=== PATIENT | female | born 1940 | race Caucasian/White ===

== ENCOUNTER 2018-07-24 11:14 | Inpatient (IN) | payer MEDICARE, OTHER ==
[~2018-07-24] VITALS: Ht 154.9 cm; Wt 60.6 kg
[2018-07-24 12:14] LABS: Basophils # (auto) 0 uL; Basophils % (auto) 0.5 % (0.0-2.0); Eosinophils # (auto) 0 uL; Eosinophils % (auto) 0.6 % (0.0-7.0); Hematocrit 44.9 % (36.0-46.0); Hemoglobin 15.3 g/dL (12.2-16.2); Lymphocytes % (auto) 35.8 % (10.0-50.0); Mean Corpuscular Hgb Conc. 34.1 g/dL (32.0-36.0); Mean Corpuscular Volume 93.7 fL (80.0-100.0); Monocytes # (auto) 0.6 uL; Monocytes % (auto) 10.2 % (0.0-12.0); Neutrophils # (auto) 2.9 uL; Neutrophils % (auto) 52.9 % (37.0-80.0); Nucleated Red Blood Cells % 0.1 %; Platelet Count (auto) 304 10^3/uL (140-450); Red Blood Cells 4.79 10^6/uL (4.0-5.20); Red Cell Distribution Width 13.3 % (11.8-14.3); White Blood Cell 5.5 10^3/uL (4.4-10.8)
[2018-07-24 12:35] LABS: Alanine Aminotransferase 65 U/L (13-56); Albumin 4.3 g/dL (3.4-5.0); Anion Gap 9 (5-15); Aspartate Aminotransferase 47 U/L (15-37); BUN/Creatinine Ratio 11.7; Blood Urea Nitrogen 7 mg/dL (7-18); Calcium 9.3 mg/dL (8.5-10.1); Carbon Dioxide 24 mmol/L (21-32); Chloride 90 mmol/L (98-107); GFR African American 124 mL/min; GFR Non-African American 102 mL/min; Glucose 125 mg/dL (74-106); Potassium 3.9 mmol/L (3.5-5.1); Sodium 123 mmol/L (136-145)
[2018-07-24 12:39] LABS: Alkaline Phosphatase 75 U/L (45-117); Bilirubin, Total 0.5 mg/dL (0.2-1.0); Total Protein 8.4 g/dL (6.4-8.2)
[2018-07-24 13:04] LABS: INR 0.97 (0.9-1.15); Partial Thromboplastin Time 27.8 sec (23.78-33.04); Prothrombin Time 10.4 sec (9.27-12.13)
[2018-07-24 13:10] LABS: Magnesium 2.4 mg/dL (1.6-2.6)
[2018-07-24 16:20] LABS: Urine Bacteria FEW /hpf (None Seen); Urine Blood Negative /uL (Negative); Urine Specific Gravity 1.005 (1.001-1.035); Urine WBC 10 /hpf (0 - 5)
[2018-07-24] MEDS ORDERED: SODIUM CHLORIDE 0.9% 1,000 ML IVB ONE (19:53)
[2018-07-24] MEDS ORDERED: PROMETHAZINE HCL 25 MG/ML 1ML IV PRN (20:00)
[2018-07-24] MEDS ORDERED: HYDROcodone-ACET 5/325MG TAB PO PRN (20:45)
[2018-07-24] MEDS ORDERED: ACETAMINOPHEN 325 MG TAB PO PRN (20:45)
[2018-07-24] MEDS ORDERED: ONDANSETRON HCL 4 MG/2 ML VIAL IV PRN (20:45)
[2018-07-24] MEDS ORDERED: TEMAZEPAM 15 MG CAP PO PRN (20:45)
[2018-07-24] MEDS ORDERED: MORPHINE SULFATE 4 MG/ML SYR/VIAL IV PRN (20:45)
[2018-07-24] MEDS ORDERED: cefTRIAXone 1GM/50ML D5W 50 ML IV ONE (21:30)
[2018-07-24] MEDS: FAMOTIDINE 20 MG TAB PO SCH (22:34)
--- NOTE | 2018-07-24 23:00 | NUR ---
Telemetry admit from [facility]AH[facility] CALDER[facility]N admitted to Medical Surgical unit. Patient oriented to SANDER THOMAS, primary RN, unit, room, bed, and unit policies regarding patient care and visiting hours. Patient weighed by bedscale and encouraged to call if they need something. All questions and concerns addressed, patient verbalized understanding.
[2018-07-25] MEDS: SODIUM CHLORIDE 0.9% 1,000 ML IV SCH ×3 (00:58→23:32)
[2018-07-25] MEDS: LORazepam 0.5 MG TAB PO PRN (01:04)
[2018-07-25] MEDS ORDERED: LORA-655 PO (01:16)
[2018-07-25] MEDS ORDERED: AMITRIP PO (01:16)
[2018-07-25] MEDS ORDERED: LEV50T PO (01:16)
[2018-07-25] MEDS ORDERED: LOSA25TA40 PO (01:16)
[2018-07-25] MEDS ORDERED: PROP60CA34 PO (01:16)
[2018-07-25 05:48] VITALS: BP 90/53
[2018-07-25 05:56] LABS: Basophils # (auto) 0.1 uL; Basophils % (auto) 1.1 % (0.0-2.0); Eosinophils # (auto) 0.1 uL; Eosinophils % (auto) 1.2 % (0.0-7.0); Hemoglobin 14.8 g/dL (12.2-16.2); Lymphocytes # (auto) 2.7 uL; Lymphocytes % (auto) 37.8 % (10.0-50.0); Mean Corpuscular Hemoglobin 32.9 pg (28.0-32.0); Mean Corpuscular Hgb Conc. 35.2 g/dL (32.0-36.0); Mean Corpuscular Volume 93.5 fL (80.0-100.0); Monocytes # (auto) 0.8 uL; Monocytes % (auto) 10.9 % (0.0-12.0); Neutrophils # (auto) 3.5 uL; Nucleated Red Blood Cells % 0.1 %; Platelet Count (auto) 276 10^3/uL (140-450); Red Blood Cells 4.49 10^6/uL (4.0-5.20); Red Cell Distribution Width 13.1 % (11.8-14.3)
[2018-07-25] MEDS: LEVOTHYROXINE SODIUM 50 MCG TAB PO SCH (06:05)
[2018-07-25 06:14] LABS: Albumin 3.8 g/dL (3.4-5.0); BUN/Creatinine Ratio 12.7; Calcium 8.5 mg/dL (8.5-10.1); Potassium 3.5 mmol/L (3.5-5.1)
[2018-07-25 06:17] LABS: Bilirubin, Total 0.7 mg/dL (0.2-1.0); Total Protein 7.4 g/dL (6.4-8.2)
--- NOTE | 2018-07-25 07:00 | NUR ---
Opening Shift Note Assumed care of patient, awake, alert, and oriented x4. No S/S of distress/SOB, but patient reports medial abdominal pain of 6/10. IV in right forearm 20 gauge asymptomatic, intact, patent, and infusing normal saline at 75 mL/hour. Bed locked and in lowest position and call light is within reach. Instructed on POC and to call for assist PRN, and patient verbalized understanding. Will continue to monitor for changes Q1hr and PRN.
[2018-07-25 10:03] VITALS: BP 131/66
[2018-07-25] MEDS: FAMOTIDINE 20 MG TAB PO SCH (10:34)
[2018-07-25] MEDS: AMITRIPTYLINE HCL 25 MG TAB PO SCH (10:35)
[2018-07-25] MEDS: PROPRANOLOL HCL 20 MG TAB PO SCH (10:37)
[2018-07-25 17:07] VITALS: BP 125/75
[2018-07-25] MEDS: cefTRIAXone 1GM/50ML D5W 50 ML IV SCH (21:50)
[2018-07-25 22:00] VITALS: BP 141/92
[2018-07-26] MEDS: LORazepam 0.5 MG TAB PO PRN ×3 (01:03→23:54)
[2018-07-26 05:49] VITALS: BP 103/61
[2018-07-26 05:58] VITALS: BP 138/78
[2018-07-26] MEDS: LEVOTHYROXINE SODIUM 50 MCG TAB PO SCH ×2 (06:25→07:05)
[2018-07-26 06:38] LABS: Potassium 3.4 mmol/L (3.5-5.1)
[2018-07-26 06:46] LABS: BUN/Creatinine Ratio 11.1; Calcium 8.5 mg/dL (8.5-10.1)
--- NOTE | 2018-07-26 07:06 | NUR ---
SHIFT END PATIENT RESTING IN BED. NO COMPLAINTS OF PAIN OR SIGNS OR SYMPTOMS OF DISTRESS NOTED. NO BM YET BUT TOLERATED FULL LIQUID DIET WELL LAST NIGHT. NO ABDOMINAL PAIN OR N/V AFTER DINNER. ENDORSING CARE TO DAY RN.
--- NOTE | 2018-07-26 07:30 | NUR ---
Opening Shift Note Assumed care of patient, awake, alert, and oriented x4. No S/S of distress/SOB or pain. IV in left forearm 20 gauge asymptomatic, intact, patent, and infusing normal saline at 75 mL/hour. Bed locked and in lowest position and call light is within reach. Instructed on POC and to call for assist PRN, and patient verbalized understanding to the best of her ability. Will continue to monitor for changes Q1hr and PRN.
[2018-07-26 08:38] VITALS: BP_SYST 114; BP_SYST 155; BP_DIAS 60; BP_DIAS 68
[2018-07-26] MEDS: AMITRIPTYLINE HCL 25 MG TAB PO SCH (09:55)
[2018-07-26] MEDS: FAMOTIDINE 20 MG TAB PO SCH (09:55)
[2018-07-26] MEDS: PROPRANOLOL HCL 20 MG TAB PO SCH (09:57)
--- NOTE | 2018-07-26 10:35 | NUR ---
SON CALLED AND SPOKE WITH [facility] DISCHARGE NURSE, AND REQUESTED PATIENT INFORMATION. WAS TOLD PASSWORD WAS NOT SET UP, AND HE ADDRESSED SEVERAL CONCERNS ABOUT THE PATIENT. WILL SET UP PASSWORD WITH PATIENT, AND AWAIT RETURN CALL FROM SON. WILL CONTINUE TO MONITOR Q1.
--- NOTE | 2018-07-26 10:37 | NUR ---
PLACED PHONE WITHIN PATIENT'S REACH. Patient could not reach phone at bedside to answer incoming calls. Went into room and assisted patient in answering hospital room phone; placed phone next to patient, and explained how to use the phone. Patient verbalized understanding, and demonstrated correct use of phone. Will continue to monitor patient.
--- NOTE | 2018-07-26 10:40 | NUR ---
SET UP PASSWORD WITH PATIENT, AND PATIENT STATES THAT PASSWORD WAS GIVEN TO SON. PATIENT STATED THAT SHE WOULD LIKE HER FLOOR CLEANED DAILY. PAGED EVS AND REQUESTED FOR FLOOR TO BE CLEANED DAILY AT BEDSIDE. AWAITING REPLY FROM EVS.
[2018-07-26] MEDS ORDERED: POTASSIUM CHL 20 Meq TABLET PO ONE (11:45)
[2018-07-26 12:43] VITALS: BP 194/113
[2018-07-26 17:16] VITALS: BP_SYST 121; BP_SYST 160; BP_DIAS 78; BP_DIAS 89
[2018-07-26] MEDS: cefTRIAXone 1GM/50ML D5W 50 ML IV SCH (21:52)
[2018-07-26 22:00] VITALS: BP 155/74
[2018-07-27 05:38] VITALS: BP 117/74
[2018-07-27] MEDS ORDERED: LEVOTHYROXINE SODIUM 50 MCG TAB PO SCH (06:00)
[2018-07-27 06:53] LABS: BUN/Creatinine Ratio 14.9; Calcium 8.8 mg/dL (8.5-10.1); Potassium 3.9 mmol/L (3.5-5.1)
--- NOTE | 2018-07-27 06:54 | NUR ---
SIGN OFF PATIENT RESTING IN BED COMFORTABLY. NO DISTRESS OR PAIN NOTED. BED IN LOWEST LOCKED POSITION WITH 2/4 SIDE RAILS UP AND CALL MIJARES W/IN REACH. ENDORSING CARE TO DAY RN.
--- NOTE | 2018-07-27 07:50 | NUR ---
Patient sitting in chair, talkative. Patient verbalized "I'm nervous." Patient has anxiety. Patient made aware relaxation techniques can help. Not due for Ativan at this time.
[2018-07-27 09:29] VITALS: BP 151/95
[2018-07-27] MEDS: PROPRANOLOL HCL 20 MG TAB PO SCH (09:29)
[2018-07-27] MEDS: AMITRIPTYLINE HCL 25 MG TAB PO SCH (09:30)
[2018-07-27] MEDS: FAMOTIDINE 20 MG TAB PO SCH (09:30)
[2018-07-27] MEDS: LORazepam 0.5 MG TAB PO PRN (12:35)
--- NOTE | 2018-07-27 12:35 | NUR ---
Patient is anxious, talkative. Ativan PO given for anxiety as ordered.
[2018-07-27 12:44] VITALS: BP 155/89
--- NOTE | 2018-07-27 16:00 | NUR ---
Patient requested if she can eat dinner first before going home, but if her daughter comes earlier than 6:00 pm to pick her up, it's okay for her not to have dinner at the hospital.
[2018-07-27 16:09] VITALS: BP 151/95
--- NOTE | 2018-07-27 16:50 | NUR ---
IV line removed, IV catheter intact, pressure dressing applied. Patient is ambulatory, steady gait noted, oriented x4, no acute distress noted. Patient waiting for her daughter to come over to pick her up. Returned patient's own medications (POM). Instructed the patient of her follow up appointment with Enma Arvizu. Prescription and discharge papers given to patient.
--- NOTE | 2018-07-27 17:30 | NUR ---
Patient not in the room. Patient on Bed A said patient on Bed B already left.
== END 2018-07-27 17:30 | disposition home or self-care (01) | DRG 690 ==
LOC: ER 11:22 → WEST WING 20:37
PROVIDERS: ADMIT Nurse Practitioner; ATTEND Internal Medicine
DX: N39.0 Urinary tract infection, site not specified (principal); E87.1 Hypo-osmolality and hyponatremia; K21.9 Gastro-esophageal reflux disease without esophagitis; I10 Essential (primary) hypertension; F41.9 Anxiety disorder, unspecified; E03.9 Hypothyroidism, unspecified; K76.0 Fatty (change of) liver, not elsewhere classified; E78.5 Hyperlipidemia, unspecified; R63.1 Polydipsia; Z79.890 Hormone replacement therapy; Z79.899 Other long term (current) drug therapy; Z90.710 Acquired absence of both cervix and uterus; Z88.2 Allergy status to sulfonamides; Z82.49 Family history of ischemic heart disease and other diseases of the circulatory system
CPT/HCPCS: 36415; 71045; 74176; 80048; 80053; 81001; 82150; 83690; 83735; 84295; 84443; 84484; 85025; 85610; 85730; 87086; 93005; 94761; 96361; 96365; A6257; G0378; J0696

== ENCOUNTER → 2018-08-04 | Outpatient (CLI) | payer MEDICARE, OTHER ==
[~2018-08-04] MED LIST: AMITRIP PO; LEV50T PO; LORA-655 PO; LOSA25TA40 PO; PROP60CA34 PO
[2018-08-04 13:40] LABS: BUN/Creatinine Ratio 14.1; Potassium 4.1 mmol/L (3.5-5.1)
[2018-08-04 14:12] LABS: Urine Amorphous Crystal FEW /hpf (None Seen); Urine Bacteria NONE SEEN /hpf (None Seen); Urine Blood Negative /uL (Negative); Urine Specific Gravity 1.006 (1.001-1.035); Urine WBC <1 /hpf (0 - 5)
== END | disposition home or self-care (01) ==
LOC: LAB 12:49
PROVIDERS: ATTEND Internal Medicine
DX: E03.9 Hypothyroidism, unspecified (principal); I10 Essential (primary) hypertension
CPT/HCPCS: 36415; 80048; 81001

== ENCOUNTER → 2018-10-06 | Outpatient (CLI) | payer MEDICARE, OTHER | END | disposition home or self-care (01) | LOC: LAB 14:24 | PROVIDERS: ATTEND Internal Medicine | DX: E03.9 Hypothyroidism, unspecified (principal) | CPT/HCPCS: 36415; 84443 ==

== ENCOUNTER → 2018-12-02 | Outpatient (CLI) | payer MEDICARE, OTHER ==
[~2018-12-02] MED LIST changes: +LOSA25TA38 PO; -LOSA25TA40 PO
[2018-12-02 13:58] LABS: Albumin 3.9 g/dL (3.4-5.0); BUN/Creatinine Ratio 10.1; Calcium 8.8 mg/dL (8.5-10.1); Potassium 4.1 mmol/L (3.5-5.1)
[2018-12-02 14:00] LABS: Bilirubin, Total 0.3 mg/dL (0.2-1.0)
== END | disposition home or self-care (01) ==
LOC: LAB 13:24
PROVIDERS: ATTEND Internal Medicine
DX: E03.9 Hypothyroidism, unspecified (principal); I10 Essential (primary) hypertension
CPT/HCPCS: 36415; 80053

== ENCOUNTER → 2019-01-05 | Outpatient (CLI) | payer MEDICARE, OTHER ==
[~2019-01-05] MED LIST changes: +LISI40TA PO; +POM PO
[2019-01-05 13:28] LABS: BUN/Creatinine Ratio 23.3; Calcium 8.7 mg/dL (8.5-10.1); Potassium 4.3 mmol/L (3.5-5.1)
== END | disposition home or self-care (01) ==
LOC: LAB 12:25
PROVIDERS: ATTEND Internal Medicine
DX: I10 Essential (primary) hypertension (principal)
CPT/HCPCS: 36415; 80048

== ENCOUNTER → 2019-06-06 | Outpatient (CLI) | payer MEDICARE, OTHER ==
[2019-06-06 14:45] LABS: Potassium 3.9 mmol/L (3.5-5.1)
[2019-06-06 14:53] LABS: Albumin 3.9 g/dL (3.4-5.0); BUN/Creatinine Ratio 21.5; Bilirubin, Total 0.5 mg/dL (0.2-1.0); Calcium 9.1 mg/dL (8.5-10.1); Total Protein 7.9 g/dL (6.4-8.2)
== END | disposition home or self-care (01) ==
LOC: LAB 14:00
PROVIDERS: ATTEND Internal Medicine
DX: E03.9 Hypothyroidism, unspecified (principal); I10 Essential (primary) hypertension; E87.1 Hypo-osmolality and hyponatremia; E87.6 Hypokalemia; G93.40 Encephalopathy, unspecified; F41.9 Anxiety disorder, unspecified; Z79.899 Other long term (current) drug therapy
CPT/HCPCS: 36415; 80053; 82306; 83036; 84443

== ENCOUNTER → 2020-06-28 | Outpatient (CLI) | payer MEDICARE, OTHER ==
[~2020-06-28] MED LIST changes: +AMIT25TA11 PO; -AMITRIP PO; -LISI40TA PO; +LISI40TA11 PO
[2020-06-28 10:56] LABS: Cholesterol 250 mg/dL (< 200); HDL Cholesterol 55 mg/dL (40-59); LDL Cholesterol 165 mg/dL (< 100); Triglycerides 204 mg/dL (< 150)
[2020-06-28 11:35] LABS: Urine Amorphous Crystal FEW /hpf (None Seen); Urine Bacteria MOD /hpf (None Seen); Urine Blood Negative /uL (Negative); Urine Mucus FEW (None Seen); Urine Specific Gravity 1.012 (1.001-1.035); Urine WBC 32 /hpf (0 - 5)
== END | disposition home or self-care (01) ==
LOC: LAB 09:05
PROVIDERS: ATTEND Internal Medicine
DX: E78.5 Hyperlipidemia, unspecified (principal); R73.03 Prediabetes
CPT/HCPCS: 36415; 80061; 81001; 83036

== ENCOUNTER → 2020-09-19 | Outpatient (CLI) | payer MEDICARE, OTHER ==
[2020-09-19 09:23] LABS: Albumin 4.3 g/dL (3.4-5.0); Bilirubin, Direct 0.2 mg/dL (0-0.2)
[2020-09-19 09:27] LABS: Bilirubin, Total 0.6 mg/dL (0.2-1.0); Total Protein 8.5 g/dL (6.4-8.2)
== END | disposition home or self-care (01) ==
LOC: LAB 08:22
PROVIDERS: ATTEND Internal Medicine
DX: E78.5 Hyperlipidemia, unspecified (principal)
CPT/HCPCS: 36415; 80061; 80076

== ENCOUNTER 2020-11-08 09:25 | Emergency (ER) | payer MEDICARE, OTHER ==
[~2020-11-08] VITALS: Ht 154.9 cm; Wt 54.4 kg
[2020-11-08 10:20] LABS: Urine WBC None Seen /hpf (0 - 5)
[2020-11-08 10:24] VITALS: BP 165/80
[2020-11-08 10:29] LABS: Urine Amorphous Crystal MANY /hpf (None Seen); Urine Bacteria NONE SEEN /hpf (None Seen); Urine Blood Negative /uL (Negative); Urine Specific Gravity 1.006 (1.001-1.035)
[2020-11-08] MEDS ORDERED: LACTULOSE 20Gm/30ML SOLN PO ONE (10:45)
[2020-12-20] MEDS ORDERED: SIMV10TA2 PO (16:00)
[2020-12-20] MEDS ORDERED: CLON0.1T PO (16:00)
== END 2020-11-08 11:02 | disposition home or self-care (01) ==
LOC: ER 09:25
DX: K59.00 Constipation, unspecified (principal); N20.0 Calculus of kidney; I10 Essential (primary) hypertension; E78.5 Hyperlipidemia, unspecified; Z90.710 Acquired absence of both cervix and uterus; Z79.899 Other long term (current) drug therapy; Z88.0 Allergy status to penicillin; Z88.2 Allergy status to sulfonamides; Z88.5 Allergy status to narcotic agent
CPT/HCPCS: 74176; 81001

== ENCOUNTER → 2020-11-21 | Outpatient (CLI) | payer MEDICARE, OTHER | END | disposition home or self-care (01) | LOC: LAB 08:33 | PROVIDERS: ATTEND Internal Medicine | DX: I10 Essential (primary) hypertension (principal); E78.5 Hyperlipidemia, unspecified; K59.00 Constipation, unspecified | CPT/HCPCS: 36415; 85652; 86141 ==

== ENCOUNTER 2020-12-06 19:25 | Inpatient (IN) | payer MEDICARE, OTHER ==
[~2020-12-06] VITALS: Ht 157.5 cm; Wt 55.2 kg
[2020-12-06 20:28] LABS: Basophils # (auto) 0.1 10 ^3/uL (0-0.2); Basophils % (auto) 0.5 % (0.0-2.0); Eosinophils # (auto) 0 10 ^3/uL (0-0.8); Eosinophils % (auto) 0.1 % (0.0-7.0); Hematocrit 40.5 % (36.0-46.0); Hemoglobin 14.5 g/dL (12.2-16.2); Lymphocytes # (auto) 2.2 10 ^3/uL (0.4-5.4); Lymphocytes % (auto) 16.5 % (10.0-50.0); Mean Corpuscular Hemoglobin 31.6 pg (28.0-32.0); Mean Corpuscular Hgb Conc. 35.7 g/dL (32.0-36.0); Mean Corpuscular Volume 88.4 fL (80.0-100.0); Monocytes % (auto) 7.6 % (0.0-12.0); Neutrophils % (auto) 75.3 % (37.0-80.0); Red Blood Cells 4.58 10^6/uL (4.0-5.20); Red Cell Distribution Width 13.2 % (11.8-14.3); White Blood Cell 13.3 10^3/uL (4.4-10.8)
[2020-12-06 21:18] LABS: Urine Amorphous Crystal FEW /hpf (None Seen); Urine Bacteria FEW /hpf (None Seen); Urine Blood Negative /uL (Negative); Urine Specific Gravity 1.004 (1.001-1.035); Urine WBC 1 /hpf (0 - 5)
[2020-12-06 21:37] LABS: Albumin 4.3 g/dL (3.4-5.0); Calcium 8.9 mg/dL (8.5-10.1); Potassium 3.1 mmol/L (3.5-5.1)
[2020-12-06 21:41] LABS: Bilirubin, Total 0.7 mg/dL (0.2-1.0); Total Protein 8.2 g/dL (6.4-8.2)
[2020-12-06] MEDS ORDERED: MORPHINE SULFATE 4 MG/ML SYR/VIAL IV PRN (22:00)
[2020-12-06] MEDS ORDERED: diphenhdrAMINE HCL 50 MG/1 ML VL IV PRN (22:00)
[2020-12-06] MEDS ORDERED: NITROGLYCERIN 0.4 MG SL TAB SL PRN (22:00)
[2020-12-06] MEDS ORDERED: ACETAMINOPHEN 325 MG TAB PO PRN (22:00)
[2020-12-06] MEDS ORDERED: hydrALAZINE HCL 20 MG/ML VL IV PRN (22:00)
[2020-12-06] MEDS ORDERED: MORPHINE SULF INJ 2 MG/ML SYRINGE 1ML IV PRN (22:00)
[2020-12-06] MEDS ORDERED: ONDANSETRON HCL 4 MG/2 ML VIAL IV PRN (22:00)
[2020-12-06] MEDS: SODIUM CHLORIDE 0.9% 1,000 ML IV SCH (22:15)
[2020-12-06] MEDS: metroNIDAZOLE 500MG/100ML 100 ML IV SCH (23:29)
[2020-12-06] MEDS: FAMOTIDINE (10MG/ML) 2ML VL IV SCH (23:29)
[2020-12-07] VITALS (8 sets, daily range): BP systolic 117–135; BP diastolic 74–92
[2020-12-07] MEDS: POTASSIUM CHL 20MEQ/100ML 100 ML IV SCH ×2 (01:22→03:30)
[2020-12-07] MEDS ORDERED: AMLO-489 PO (02:01)
[2020-12-07] MEDS ORDERED: LEVO50TA7 PO (02:01)
[2020-12-07] MEDS: metroNIDAZOLE 500MG/100ML 100 ML IV SCH ×3 (05:47→21:40)
[2020-12-07] MEDS: LORazepam 0.5 MG TAB PO PRN ×3 (05:48→20:47)
[2020-12-07 06:00] LABS: Basophils # (auto) 0 10 ^3/uL (0-0.2); Basophils % (auto) 0.6 % (0.0-2.0); Eosinophils # (auto) 0 10 ^3/uL (0-0.8); Eosinophils % (auto) 0.3 % (0.0-7.0); Hematocrit 38.5 % (36.0-46.0); Hemoglobin 13.7 g/dL (12.2-16.2); Lymphocytes # (auto) 1.6 10 ^3/uL (0.4-5.4); Lymphocytes % (auto) 23.9 % (10.0-50.0); Mean Corpuscular Hemoglobin 31.8 pg (28.0-32.0); Mean Corpuscular Hgb Conc. 35.6 g/dL (32.0-36.0); Mean Corpuscular Volume 89.2 fL (80.0-100.0); Monocytes # (auto) 0.7 10 ^3/uL (0-1.3); Monocytes % (auto) 9.9 % (0.0-12.0); Neutrophils # (auto) 4.4 10 ^3/uL (1.6-8.6); Neutrophils % (auto) 65.3 % (37.0-80.0); Red Blood Cells 4.32 10^6/uL (4.0-5.20); Red Cell Distribution Width 13.4 % (11.8-14.3); White Blood Cell 6.8 10^3/uL (4.4-10.8)
[2020-12-07 06:15] LABS: Albumin 3.5 g/dL (3.4-5.0); Calcium 8.6 mg/dL (8.5-10.1); Potassium 4.3 mmol/L (3.5-5.1)
[2020-12-07 06:21] LABS: BUN/Creatinine Ratio 14.3; Bilirubin, Total 0.7 mg/dL (0.2-1.0); Total Protein 7.1 g/dL (6.4-8.2)
[2020-12-07] MEDS: FAMOTIDINE (10MG/ML) 2ML VL IV SCH (10:00)
[2020-12-07 12:34] LABS: INR 1.02 (0.9-1.15)
[2020-12-07] MEDS ORDERED: FLEET ENEMA(ADULT) 135 ML PR ONE ×2 (14:30→16:30)
[2020-12-07] MEDS: SODIUM CHLORIDE 0.9% 1,000 ML IV SCH ×2 (14:55→20:47)
[2020-12-07] MEDS ORDERED: MILK OF MAGNESIA 30ML SUSP PO ONE (16:00)
[2020-12-07] MEDS: DOCUSATE SOD 100 MG CAP PO SCH ×2 (21:40→21:50)
[2020-12-08 05:00] VITALS: BP 153/93
[2020-12-08] MEDS: metroNIDAZOLE 500MG/100ML 100 ML IV SCH ×3 (06:15→21:09)
[2020-12-08 06:28] LABS: Basophils # (auto) 0 10 ^3/uL (0-0.2); Basophils % (auto) 0.8 % (0.0-2.0); Eosinophils # (auto) 0.1 10 ^3/uL (0-0.8); Hematocrit 41.6 % (36.0-46.0); Hemoglobin 14.9 g/dL (12.2-16.2); Lymphocytes # (auto) 2.4 10 ^3/uL (0.4-5.4); Lymphocytes % (auto) 40.6 % (10.0-50.0); Mean Corpuscular Hemoglobin 32.5 pg (28.0-32.0); Mean Corpuscular Hgb Conc. 35.8 g/dL (32.0-36.0); Mean Corpuscular Volume 90.9 fL (80.0-100.0); Monocytes # (auto) 0.7 10 ^3/uL (0-1.3); Monocytes % (auto) 12.5 % (0.0-12.0); Neutrophils # (auto) 2.7 10 ^3/uL (1.6-8.6); Neutrophils % (auto) 45.1 % (37.0-80.0); Nucleated Red Blood Cells % 0.1 %; Red Blood Cells 4.57 10^6/uL (4.0-5.20); Red Cell Distribution Width 13.5 % (11.8-14.3)
[2020-12-08 06:47] LABS: Calcium 8.9 mg/dL (8.5-10.1); Potassium 3.2 mmol/L (3.5-5.1)
[2020-12-08] MEDS: LORazepam 0.5 MG TAB PO PRN ×2 (06:53→18:54)
[2020-12-08 08:45] VITALS: BP 140/82
[2020-12-08] MEDS: DOCUSATE SOD 100 MG CAP PO SCH ×2 (10:00→21:09)
[2020-12-08] MEDS: FAMOTIDINE (10MG/ML) 2ML VL IV SCH (10:00)
[2020-12-08] MEDS ORDERED: POTASSIUM EFFERVESENT TAB 25 MEQ PO ONE (10:45)
[2020-12-08 13:08] VITALS: BP 154/95
[2020-12-08 17:12] VITALS: BP 152/95
[2020-12-08 22:00] VITALS: BP 151/84
[2020-12-09] MEDS: SODIUM CHLORIDE 0.9% 1,000 ML IV SCH ×3 (00:29→18:32)
[2020-12-09 05:00] VITALS: BP 141/80
[2020-12-09 05:43] LABS: Basophils # (auto) 0 10 ^3/uL (0-0.2); Basophils % (auto) 0.9 % (0.0-2.0); Eosinophils # (auto) 0.1 10 ^3/uL (0-0.8); Eosinophils % (auto) 1.4 % (0.0-7.0); Hematocrit 40.9 % (36.0-46.0); Hemoglobin 14.6 g/dL (12.2-16.2); Lymphocytes # (auto) 1.4 10 ^3/uL (0.4-5.4); Lymphocytes % (auto) 31.7 % (10.0-50.0); Mean Corpuscular Hemoglobin 32.5 pg (28.0-32.0); Mean Corpuscular Hgb Conc. 35.8 g/dL (32.0-36.0); Mean Corpuscular Volume 90.6 fL (80.0-100.0); Monocytes # (auto) 0.5 10 ^3/uL (0-1.3); Monocytes % (auto) 12.3 % (0.0-12.0); Neutrophils # (auto) 2.4 10 ^3/uL (1.6-8.6); Neutrophils % (auto) 53.7 % (37.0-80.0); Red Blood Cells 4.51 10^6/uL (4.0-5.20); Red Cell Distribution Width 13.5 % (11.8-14.3); White Blood Cell 4.5 10^3/uL (4.4-10.8)
[2020-12-09] MEDS: metroNIDAZOLE 500MG/100ML 100 ML IV SCH (05:57)
[2020-12-09 06:05] LABS: Albumin 3.7 g/dL (3.4-5.0); Calcium 8.5 mg/dL (8.5-10.1)
[2020-12-09 06:10] LABS: BUN/Creatinine Ratio 10.9; Bilirubin, Total 0.6 mg/dL (0.2-1.0); Total Protein 7.8 g/dL (6.4-8.2)
[2020-12-09] MEDS: LEVOTHYROXINE SODIUM 25 MCG TAB PO SCH (07:03)
[2020-12-09 08:15] LABS: Potassium 2.9 mmol/L (3.5-5.1)
[2020-12-09 09:00] VITALS: BP 187/111
[2020-12-09] MEDS: amLODIPine BESYLATE 5 MG TAB PO SCH (09:07)
[2020-12-09] MEDS: DOCUSATE SOD 100 MG CAP PO SCH ×2 (09:08→21:09)
[2020-12-09] MEDS: LORazepam 0.5 MG TAB PO PRN ×3 (11:17→23:59)
[2020-12-09] MEDS ORDERED: POTASSIUM CHLORIDE 60 MEQ, LIDOCAINE 1% (LOCAL ANESTH.) 6 ML in SODIUM CHL 0.9% 500 ML IV ONE (11:30)
[2020-12-09] MEDS ORDERED: POTASSIUM CHL 20 Meq TABLET PO ONE (11:30)
[2020-12-09 13:00] VITALS: BP 156/97
[2020-12-09 17:00] VITALS: BP 137/82
[2020-12-09 21:35] VITALS: BP 133/74
[2020-12-10] MEDS: SODIUM CHLORIDE 0.9% 1,000 ML IV SCH (03:22)
[2020-12-10 04:56] VITALS: BP 125/73
[2020-12-10] MEDS: LORazepam 0.5 MG TAB PO PRN (06:17)
[2020-12-10 06:59] LABS: BUN/Creatinine Ratio 17.8; Calcium 8.4 mg/dL (8.5-10.1); Magnesium 2.4 mg/dL (1.6-2.6); Potassium 3.9 mmol/L (3.5-5.1)
[2020-12-10] MEDS: LEVOTHYROXINE SODIUM 25 MCG TAB PO SCH ×2 (06:59→07:00)
[2020-12-10 09:00] VITALS: BP 158/92
[2020-12-10] MEDS: amLODIPine BESYLATE 5 MG TAB PO SCH (09:23)
[2020-12-10] MEDS: DOCUSATE SOD 100 MG CAP PO SCH (09:23)
[2020-12-10 12:07] VITALS: BP 158/92
== END 2020-12-10 13:30 | disposition home or self-care (01) | DRG 389 ==
LOC: EDBD 19:25 → ER 19:25 → TELE 21:58 → TELE-WESTW 23:54
PROVIDERS: ADMIT Nurse Practitioner Family; ATTEND Internal Medicine
DX: K56.41 Fecal impaction (principal); E87.1 Hypo-osmolality and hyponatremia; E87.6 Hypokalemia; Z20.822 Contact with and (suspected) exposure to COVID-19; I10 Essential (primary) hypertension; E78.5 Hyperlipidemia, unspecified; E03.9 Hypothyroidism, unspecified; K64.9 Unspecified hemorrhoids; F41.9 Anxiety disorder, unspecified; N20.0 Calculus of kidney; Z82.49 Family history of ischemic heart disease and other diseases of the circulatory system; Z90.710 Acquired absence of both cervix and uterus; Z79.899 Other long term (current) drug therapy; Z88.0 Allergy status to penicillin; Z88.2 Allergy status to sulfonamides; Z88.6 Allergy status to analgesic agent; Z88.8 Allergy status to other drugs, medicaments and biological substances
CPT/HCPCS: 36415; 74176; 80048; 80053; 81001; 83690; 83735; 84443; 85025; 85610; 87040; 87426; G0378; J2001; J3480; J3490

== ENCOUNTER 2020-12-25 11:39 | Day surgery (SDC) | payer MEDICARE, OTHER ==
[2020-12-20 10:01] LABS: Urine Amorphous Crystal MOD /hpf (None Seen); Urine Bacteria FEW /hpf (None Seen); Urine Blood Negative /uL (Negative); Urine Budding Yeast OCCASIONAL /hpf (None Seen); Urine Specific Gravity 1.007 (1.001-1.035); Urine WBC 4 /hpf (0 - 5)
[2020-12-20 10:07] LABS: Basophils # (auto) 0 10 ^3/uL (0-0.2); Basophils % (auto) 0.5 % (0.0-2.0); Eosinophils # (auto) 0 10 ^3/uL (0-0.8); Eosinophils % (auto) 0.3 % (0.0-7.0); Hematocrit 43.7 % (36.0-46.0); Hemoglobin 15.2 g/dL (12.2-16.2); Lymphocytes # (auto) 1.5 10 ^3/uL (0.4-5.4); Lymphocytes % (auto) 27.5 % (10.0-50.0); Mean Corpuscular Hemoglobin 31.6 pg (28.0-32.0); Mean Corpuscular Hgb Conc. 34.8 g/dL (32.0-36.0); Mean Corpuscular Volume 90.8 fL (80.0-100.0); Monocytes # (auto) 0.6 10 ^3/uL (0-1.3); Monocytes % (auto) 10.7 % (0.0-12.0); Neutrophils # (auto) 3.3 10 ^3/uL (1.6-8.6); Nucleated Red Blood Cells % 0.1 %; Red Blood Cells 4.82 10^6/uL (4.0-5.20); Red Cell Distribution Width 13.6 % (11.8-14.3); White Blood Cell 5.4 10^3/uL (4.4-10.8)
[2020-12-20 10:18] LABS: Calcium 9.3 mg/dL (8.5-10.1); Potassium 3.6 mmol/L (3.5-5.1)
[2020-12-20 10:21] LABS: BUN/Creatinine Ratio 19.6; Bilirubin, Total 0.6 mg/dL (0.2-1.0); Total Protein 8.4 g/dL (6.4-8.2)
[~2020-12-25] VITALS: Ht 154.9 cm; Wt 50.3 kg
[~2020-12-25 11:39] MED LIST changes: -AMIT25TA11 PO; +AMLO-489 PO; +CLON0.1T PO; -LEV50T PO; +LEVO50TA7 PO; -LISI40TA11 PO; -LOSA25TA38 PO; -PROP60CA34 PO; +SIMV10TA2 PO
[2020-12-25] MEDS ORDERED: MIDAZOLAM HCL 5 MG/ML-1ML VIAL ONE (12:17)
[2020-12-25] MEDS ORDERED: diphenhdrAMINE HCL 50 MG/1 ML VL ONE (12:17)
[2020-12-25] MEDS ORDERED: fentaNYL CITRATE 100 MCG/2 ML VL ONE (12:18)
[2020-12-25 14:00] VITALS: BP 132/78
== END 2020-12-25 14:25 | disposition home or self-care (01) ==
LOC: GI 11:39
PROVIDERS: ATTEND Internal Medicine Gastroenterology
DX: R19.4 Change in bowel habit (principal); K21.9 Gastro-esophageal reflux disease without esophagitis; K44.9 Diaphragmatic hernia without obstruction or gangrene; I10 Essential (primary) hypertension; E78.5 Hyperlipidemia, unspecified; E03.9 Hypothyroidism, unspecified; H26.9 Unspecified cataract; F99 Mental disorder, not otherwise specified; Z88.0 Allergy status to penicillin; Z90.710 Acquired absence of both cervix and uterus; Z88.6 Allergy status to analgesic agent; Z20.822 Contact with and (suspected) exposure to COVID-19; Z88.5 Allergy status to narcotic agent; Z88.1 Allergy status to other antibiotic agents
CPT/HCPCS: 36415; 45378; 80053; 81001; 85025; J1200; J2250; J3010; J7030; U0003

== ENCOUNTER 2021-02-26 14:44 | Day surgery (SDC) | payer MEDICARE, BC ==
[2021-02-21 14:54] LABS: Basophils # (auto) 0 10 ^3/uL (0-0.2); Basophils % (auto) 0.6 % (0.0-2.0); Eosinophils # (auto) 0 10 ^3/uL (0-0.8); Eosinophils % (auto) 0.1 % (0.0-7.0); Hematocrit 42.9 % (36.0-46.0); Hemoglobin 14.7 g/dL (12.2-16.2); Lymphocytes % (auto) 26.2 % (10.0-50.0); Mean Corpuscular Hemoglobin 31.4 pg (28.0-32.0); Mean Corpuscular Hgb Conc. 34.3 g/dL (32.0-36.0); Mean Corpuscular Volume 91.6 fL (80.0-100.0); Monocytes # (auto) 0.7 10 ^3/uL (0-1.3); Monocytes % (auto) 8.9 % (0.0-12.0); Neutrophils % (auto) 64.2 % (37.0-80.0); Nucleated Red Blood Cells % 0.1 %; Red Blood Cells 4.69 10^6/uL (4.0-5.20); Red Cell Distribution Width 13.4 % (11.8-14.3); White Blood Cell 7.8 10^3/uL (4.4-10.8)
[2021-02-21 16:30] LABS: Albumin 4.4 g/dL (3.4-5.0); Calcium 9.2 mg/dL (8.5-10.1)
[2021-02-21 16:33] LABS: BUN/Creatinine Ratio 26.1; Bilirubin, Total 0.5 mg/dL (0.2-1.0); Total Protein 8.3 g/dL (6.4-8.2)
[~2021-02-26] VITALS: Ht 152.4 cm; Wt 45.4 kg
[2021-02-26] MEDS: fentaNYL CITRATE 100 MCG/2 ML VL ONE ×3 (15:49→17:59)
[2021-02-26] MEDS: diphenhdrAMINE HCL 50 MG/1 ML VL ONE ×2 (15:49→15:52)
[2021-02-26] MEDS: MIDAZOLAM HCL 5 MG/ML-1ML VIAL ONE ×3 (15:49→15:55)
[2021-02-26 16:35] VITALS: BP 123/70
== END 2021-02-26 16:55 | disposition home or self-care (01) ==
LOC: GI 14:44
PROVIDERS: ATTEND Internal Medicine Gastroenterology
DX: K59.00 Constipation, unspecified (principal); D12.3 Benign neoplasm of transverse colon; K63.89 Other specified diseases of intestine; K64.0 First degree hemorrhoids; I10 Essential (primary) hypertension; E78.5 Hyperlipidemia, unspecified; E03.9 Hypothyroidism, unspecified; Z82.49 Family history of ischemic heart disease and other diseases of the circulatory system; Z98.890 Other specified postprocedural states; Z79.899 Other long term (current) drug therapy; Z88.0 Allergy status to penicillin; Z88.2 Allergy status to sulfonamides; Z88.5 Allergy status to narcotic agent; Z20.822 Contact with and (suspected) exposure to COVID-19
CPT/HCPCS: 36415; 45385; 80053; 85025; 88305; J1200; J2250; J3010; J7030; U0003; G0500

== ENCOUNTER → 2021-05-21 | Outpatient (CLI) | payer MEDICARE, BC ==
[2021-05-21 14:21] LABS: Basophils # (auto) 0.1 10 ^3/uL (0-0.2); Basophils % (auto) 1.5 % (0.0-2.0); Eosinophils # (auto) 0 10 ^3/uL (0-0.8); Eosinophils % (auto) 0.2 % (0.0-7.0); Hematocrit 40.2 % (36.0-46.0); Hemoglobin 13.6 g/dL (12.2-16.2); Lymphocytes # (auto) 1.6 10 ^3/uL (0.4-5.4); Lymphocytes % (auto) 42.9 % (10.0-50.0); Mean Corpuscular Hemoglobin 30.7 pg (28.0-32.0); Mean Corpuscular Hgb Conc. 33.9 g/dL (32.0-36.0); Mean Corpuscular Volume 90.5 fL (80.0-100.0); Monocytes # (auto) 0.3 10 ^3/uL (0-1.3); Monocytes % (auto) 8.7 % (0.0-12.0); Neutrophils # (auto) 1.8 10 ^3/uL (1.6-8.6); Neutrophils % (auto) 46.7 % (37.0-80.0); Nucleated Red Blood Cells % 0.2 %; Red Blood Cells 4.44 10^6/uL (4.0-5.20); Red Cell Distribution Width 13.3 % (11.8-14.3); White Blood Cell 3.8 10^3/uL (4.4-10.8)
[2021-05-21 14:38] LABS: Urine Amorphous Crystal FEW /hpf (None Seen); Urine Bacteria NONE SEEN /hpf (None Seen); Urine Blood Negative /uL (Negative); Urine Mucus FEW (None Seen); Urine Specific Gravity 1.009 (1.001-1.035); Urine WBC 1 /hpf (0 - 5)
[2021-05-21 15:01] LABS: Albumin 3.4 g/dL (3.4-5.0); Calcium 8.7 mg/dL (8.5-10.1); Potassium 3.5 mmol/L (3.5-5.1)
[2021-05-21 15:03] LABS: BUN/Creatinine Ratio 13.6
[2021-05-21 15:06] LABS: Bilirubin, Total 0.5 mg/dL (0.2-1.0); Total Protein 6.9 g/dL (6.4-8.2)
== END | disposition home or self-care (01) ==
LOC: LAB 14:04
PROVIDERS: ATTEND Internal Medicine
DX: E87.6 Hypokalemia (principal); E03.9 Hypothyroidism, unspecified; F41.9 Anxiety disorder, unspecified; K21.9 Gastro-esophageal reflux disease without esophagitis; R10.9 Unspecified abdominal pain; Z79.899 Other long term (current) drug therapy
CPT/HCPCS: 36415; 80053; 81001; 82306; 84443; 85025

== ENCOUNTER 2021-11-28 02:49 | Inpatient (IN) | payer MEDICARE, BC ==
[~2021-11-28] VITALS: Ht 160 cm; Wt 31.3 kg
[2021-11-28 03:49] LABS: Basophils # (auto) 0.1 10 ^3/uL (0-0.2); Basophils % (auto) 0.9 % (0.0-2.0); Eosinophils # (auto) 0 10 ^3/uL (0-0.8); Eosinophils % (auto) 0.7 % (0.0-7.0); Hematocrit 38.1 % (36.0-46.0); Hemoglobin 12.5 g/dL (12.2-16.2); Lymphocytes # (auto) 1.6 10 ^3/uL (0.4-5.4); Lymphocytes % (auto) 29.3 % (10.0-50.0); Mean Corpuscular Hemoglobin 30.2 pg (28.0-32.0); Mean Corpuscular Hgb Conc. 32.8 g/dL (32.0-36.0); Monocytes # (auto) 0.4 10 ^3/uL (0-1.3); Monocytes % (auto) 6.8 % (0.0-12.0); Neutrophils # (auto) 3.4 10 ^3/uL (1.6-8.6); Neutrophils % (auto) 62.3 % (37.0-80.0); Nucleated Red Blood Cells % 0.1 %; Red Blood Cells 4.15 10^6/uL (4.0-5.20); Red Cell Distribution Width 15.4 % (11.8-14.3); White Blood Cell 5.5 10^3/uL (4.4-10.8)
[2021-11-28 04:03] LABS: Albumin 2.3 g/dL (3.4-5.0); Anion Gap 8 (5-15); Blood Urea Nitrogen 17 mg/dL (7-18); Calcium 7.7 mg/dL (8.5-10.1); Carbon Dioxide 29 mmol/L (21-32); Chloride 106 mmol/L (98-107); Glucose 77 mg/dL (74-106); Sodium 143 mmol/L (136-145)
[2021-11-28 04:05] LABS: Alanine Aminotransferase 9 U/L (13-56); Aspartate Aminotransferase 15 U/L (15-37); BUN/Creatinine Ratio 60.7; GFR African American 296 mL/min; GFR Non-African American 245 mL/min
[2021-11-28 04:07] LABS: Alkaline Phosphatase 77 U/L (45-117); Bilirubin, Total 0.4 mg/dL (0.2-1.0); Total Protein 5.6 g/dL (6.4-8.2)
[2021-11-28 04:08] LABS: Potassium 2.8 mmol/L (3.5-5.1)
[2021-11-28] MEDS: POTASSIUM CHL 20MEQ/100ML 100 ML IV SCH ×2 (05:53→08:17)
[2021-11-28] MEDS ORDERED: D5W/SOD CHL 0.9%/KCL 40MEQ 1,000 ML IV ONE (08:15)
[2021-11-28] MEDS ORDERED: POTASSIUM EFFERVESENT TAB 25 MEQ PO ONE (08:15)
[2021-11-28] MEDS ORDERED: NITROGLYCERIN 0.4 MG SL TAB SL PRN (08:30)
[2021-11-28] MEDS ORDERED: MORPHINE SULFATE INJ 2 MG/ml SYRG IV PRN (08:30)
[2021-11-28 11:38] VITALS: BP 114/74
[2021-11-28 13:00] VITALS: BP 114/74
[2021-11-28 17:00] VITALS: BP 118/81
[2021-11-29 09:48] LABS: Albumin 2.5 g/dL (3.4-5.0); Calcium 8.4 mg/dL (8.5-10.1); Potassium 3.7 mmol/L (3.5-5.1)
[2021-11-29 09:50] LABS: BUN/Creatinine Ratio 55.6; Bilirubin, Total 0.6 mg/dL (0.2-1.0); Total Protein 5.7 g/dL (6.4-8.2)
[2021-11-29 15:45] VITALS: BP 107/66
[2021-11-29 21:58] VITALS: BP 110/64
[2021-11-30 04:58] VITALS: BP 107/66
[2021-11-30] MEDS: FLUoxetine HCL 10 MG CAP PO SCH ×2 (10:00→17:30)
[2021-11-30] MEDS: DONEPEZIL HYDROCHLORIDE 5 MG TAB PO SCH ×2 (10:00→17:30)
[2021-11-30 11:37] LABS: Calcium 8.5 mg/dL (8.5-10.1); Potassium 3.5 mmol/L (3.5-5.1)
[2021-11-30 12:00] VITALS: BP 118/74
[2021-11-30 16:00] VITALS: BP 114/75
[2021-11-30 22:00] VITALS: BP 87/56
[2021-11-30] MEDS: metroNIDAZOLE 500MG/100ML 100 ML IV SCH (22:35)
[2021-12-01 05:00] VITALS: BP 109/78
[2021-12-01] MEDS: metroNIDAZOLE 500MG/100ML 100 ML IV SCH ×3 (06:00→22:00)
[2021-12-01 09:00] VITALS: BP 119/83
[2021-12-01] MEDS: DONEPEZIL HYDROCHLORIDE 5 MG TAB PO SCH (10:00)
[2021-12-01] MEDS: FLUoxetine HCL 10 MG CAP PO SCH (10:00)
[2021-12-01] MEDS ORDERED: LEVOTHYROXINE SODIUM 25 MCG TAB PO ONE (11:15)
[2021-12-01] MEDS: VANCOMYCIN HCL 125MG/5ML ORAL SOL PO SCH ×2 (12:30→18:00)
[2021-12-01 14:00] VITALS: BP 110/74
[2021-12-01 16:34] VITALS: BP 129/80
[2021-12-01 22:00] VITALS: BP 105/68
[2021-12-02 05:00] VITALS: BP 98/66
[2021-12-02] MEDS: metroNIDAZOLE 500MG/100ML 100 ML IV SCH ×3 (05:45→21:19)
[2021-12-02] MEDS: VANCOMYCIN HCL 125MG/5ML ORAL SOL PO SCH ×4 (05:46→17:52)
[2021-12-02] MEDS: LEVOTHYROXINE SODIUM 25 MCG TAB PO SCH (05:46)
[2021-12-02 09:00] VITALS: BP 124/83
[2021-12-02] MEDS: FLORASTOR (S. BOULARDII) 250 MG CAP PO SCH (10:00)
[2021-12-02] MEDS: DONEPEZIL HYDROCHLORIDE 5 MG TAB PO SCH (10:00)
[2021-12-02] MEDS: FLUoxetine HCL 10 MG CAP PO SCH (10:00)
[2021-12-02 13:00] VITALS: BP 111/75
[2021-12-02 16:48] VITALS: BP 124/72
[2021-12-02 22:00] VITALS: BP 148/99
[2021-12-03 05:00] VITALS: BP 144/96
[2021-12-03] MEDS: LEVOTHYROXINE SODIUM 25 MCG TAB PO SCH (05:45)
[2021-12-03] MEDS: VANCOMYCIN HCL 125MG/5ML ORAL SOL PO SCH ×4 (05:45→18:00)
[2021-12-03] MEDS: metroNIDAZOLE 500MG/100ML 100 ML IV SCH ×3 (05:45→21:52)
[2021-12-03 08:37] VITALS: BP 136/84
[2021-12-03] MEDS: DONEPEZIL HYDROCHLORIDE 5 MG TAB PO SCH (10:00)
[2021-12-03] MEDS: FLUoxetine HCL 10 MG CAP PO SCH (10:00)
[2021-12-03] MEDS: FLORASTOR (S. BOULARDII) 250 MG CAP PO SCH (10:00)
[2021-12-03 13:15] VITALS: BP 138/99
[2021-12-03 17:00] VITALS: BP 134/95
[2021-12-03 22:00] VITALS: BP 130/56
[2021-12-04 05:50] VITALS: BP 115/64
[2021-12-04] MEDS: VANCOMYCIN HCL 125MG/5ML ORAL SOL PO SCH ×4 (06:00→17:50)
[2021-12-04] MEDS: metroNIDAZOLE 500MG/100ML 100 ML IV SCH ×3 (06:03→22:07)
[2021-12-04] MEDS: LEVOTHYROXINE SODIUM 25 MCG TAB PO SCH (06:03)
[2021-12-04 09:00] VITALS: BP 114/77
[2021-12-04] MEDS: FLORASTOR (S. BOULARDII) 250 MG CAP PO SCH ×2 (09:34→09:41)
[2021-12-04] MEDS: FLUoxetine HCL 10 MG CAP PO SCH ×2 (09:34→09:41)
[2021-12-04] MEDS: DONEPEZIL HYDROCHLORIDE 5 MG TAB PO SCH ×2 (09:34→09:41)
[2021-12-04 12:33] VITALS: BP 131/91
[2021-12-04 17:01] VITALS: BP 107/72
[2021-12-04 21:57] VITALS: BP 155/91
[2021-12-05 05:00] VITALS: BP 114/69
[2021-12-05] MEDS: VANCOMYCIN HCL 125MG/5ML ORAL SOL PO SCH ×4 (06:00→17:32)
[2021-12-05] MEDS: metroNIDAZOLE 500MG/100ML 100 ML IV SCH ×2 (06:35→15:32)
[2021-12-05] MEDS: LEVOTHYROXINE SODIUM 25 MCG TAB PO SCH (06:47)
[2021-12-05 08:52] VITALS: BP 117/87
[2021-12-05] MEDS: FLORASTOR (S. BOULARDII) 250 MG CAP PO SCH (10:00)
[2021-12-05] MEDS: DONEPEZIL HYDROCHLORIDE 5 MG TAB PO SCH (10:00)
[2021-12-05] MEDS: FLUoxetine HCL 10 MG CAP PO SCH (10:00)
[2021-12-05 13:00] VITALS: BP 137/87
[2021-12-05 17:00] VITALS: BP 130/60
== END 2021-12-05 18:00 | DRG 372 ==
LOC: ER 02:49 → EDBD 02:49 → TELE 08:29 → TELE-WESTW 10:27 → WEST WING 12-03 09:55
PROVIDERS: ADMIT Internal Medicine; ATTEND Internal Medicine
DX: A04.72 Enterocolitis due to Clostridium difficile, not specified as recurrent (principal); E44.0 Moderate protein-calorie malnutrition; Z68.1 Body mass index [BMI] 19.9 or less, adult; E87.6 Hypokalemia; R62.7 Adult failure to thrive; F03.90 Unspecified dementia, unspecified severity, without behavioral disturbance, psychotic disturbance, mood disturbance, and anxiety; Z66 Do not resuscitate; E03.9 Hypothyroidism, unspecified; I10 Essential (primary) hypertension; F29 Unspecified psychosis not due to a substance or known physiological condition; E78.00 Pure hypercholesterolemia, unspecified; F32.9 Major depressive disorder, single episode, unspecified; Z20.822 Contact with and (suspected) exposure to COVID-19; Z88.5 Allergy status to narcotic agent; Z88.2 Allergy status to sulfonamides; Z88.8 Allergy status to other drugs, medicaments and biological substances; Z91.19 Patient's noncompliance with other medical treatment and regimen; Z82.49 Family history of ischemic heart disease and other diseases of the circulatory system; Z90.710 Acquired absence of both cervix and uterus
CPT/HCPCS: 36415; 71045; 73502; 80048; 80053; 83605; 83880; 84443; 84484; 85025; 87081; 87493; 93005; 96365; 97110; 97163; 97530; G0378; J3480; J3490